=== PATIENT | male | born 1945 | race Caucasian/White ===

== ENCOUNTER 2022-03-15 13:05 | Emergency (ER) | payer MEDICARE ==
[2022-03-15 13:38] VITALS: BP 131/64
[2022-03-15] MEDS ORDERED: TORAdol 30 mg Injection IM ONE (14:20)
[2022-03-15] MEDS ORDERED: TORAdol 30 mg Injection ONE (14:34)
--- NOTE | 2022-03-15 15:19 | XRAY ---
Indication: Index finger laceration. Comparison: None 3 view left hand demonstrates distal 2nd finger bandage material with underlying soft tissue swelling/laceration, ring base 4th finger, osteopenia, mild 1st/2nd MCP degenerative changes, and mild 1st metacarpal multangular scaphoid articulation degenerative changes. No other bony, articular, or soft tissue abnormalities.
[2022-03-15] MEDS ORDERED: XYLOCAINE 1% HCL 20 ML MDV ONE (15:48)
[2022-03-15] MEDS ORDERED: KEFZOL 1 GM IM ONE (17:07)
[2022-03-15] MEDS ORDERED: Hydromorphone 1 mg/ml Injection IM ONE (17:08)
[2022-03-15] MEDS ORDERED: KEFZOL 1 GM ONE (17:11)
[2022-03-15] MEDS ORDERED: Hydromorphone 1 mg/ml Injection ONE (17:12)
[2022-03-15] MEDS ORDERED: Sterile H2O 10 ml IJ ONE (17:13)
--- NOTE | 2022-03-15 17:13 | ERPHSYRPT ---
- History of Present Illness Source: patient Exam Limitations: no limitations Patient Subjective Stated Complaint: C/O cutting his finger trimming hedges approx 30 minutes prior to arrival to ED. Triage Nursing Assessment: Patient has a cut to this left hand index fingertip. It is currently bleeding a small amount. Area is wrapped in clean gauze. Physician History: 76 yo wm w hedge clippers vs L 2nd digit at home before ER arrival. Pt is UTD on his tetanus and pain is moderate. He denies any other injuries at this time. He is L handed. Occurred: just prior to arrival Method of Injury: incised (Hedge clippers vs L 2nd digit) Quality: constant Severity of Pain-Max: moderate Severity of Pain-Current: moderate Extremities Pain Location: 2nd finger: left Modifying Factors: Improves With: movement Associated Symptoms: none Allergies/Adverse Reactions: No Known Drug Allergies Allergy (Verified 03/15/22 13:28) Home Medications: Lorazepam 0.5 mg [Ativan 0.5 MG] 0.5 mg PO BID 05/31/14 [History] Tamsulosin HCl 0.4 mg [Flomax 0.4 MG] 0.4 mg PO DAILY 05/31/14 [History] lisinopriL [Zestril] 2.5 mg PO DAILY 05/31/14 [History] Hx Tetanus, Diphtheria Vaccination/Date Given: Yes Hx Influenza Vaccination/Date Given: Yes Hx Pneumococcal Vaccination/Date Given: Yes Immunizations Up to Date: Yes Travel Risk - International Travel Have you traveled outside of the country in past 3 weeks: No - Coronavirus Screening Are you exhibiting any of the following symptoms?: No Close contact with a COVID-19 positive Pt in past 14-21 Days: No - Vaccine Status Have you recieved a Covid-19 vaccination: Yes Staff Technologist: [id number] - Vaccination Dates Date of 2cond Vaccination (if applicable): 2020 - Review of Systems Constitutional: No Symptoms Eyes: No Symptoms Ears, Nose, & Throat: No Symptoms Respiratory: No Symptoms Cardiac: No Symptoms Abdominal/Gastrointestinal: No Symptoms Genitourinary Symptoms: No Symptoms Skin: No Symptoms Neurological: No Symptoms Psychological: No Symptoms Endocrine: No Symptoms Hematologic/Lymphatic: No Symptoms Immunological/Allergic: No Symptoms - Past Medical History Pertinent Past Medical History: Yes Cardiac History: Hypertension Other Medical History: Skin CA - Past Surgical History Past Surgical History: Yes Other Surgical History: Skin CA removals - Social History Smoking Status: Never smoker Exposure to second hand smoke: No Drug Use: none Patient Lives Alone: No - Nursing Vital Signs Nursing Vital Signs: Initial Vital Signs Temperature 98 F 03/15/22 13:28 Pulse Rate 81 03/15/22 13:28 Respiratory Rate 20 03/15/22 13:28 Blood Pressure 131/64 03/15/22 13:28 O2 Sat by Pulse Oximetry 96 03/15/22 13:28 Pain Scale Pain Intensity 3 WNL - Physical Exam General Appearance: no apparent distress Eyes, Ears, Nose, Throat Exam: normal ENT inspection Neck Exam: normal inspection, non-tender, supple, full range of motion, No Brudzinski, No Kernig's, No meningismus, No carotid bruit Cardiovascular/Respiratory Exam: normal breath sounds, regular rate/rhythm, heart sounds normal Abdominal Exam: non-tender, soft Back Exam: normal inspection, normal range of motion, No CVA tenderness, No vertebral tenderness Shoulder Exam: normal inspection, non-tender, no evidence of injury Elbow/Forearm Exam: normal inspection, non-tender, no evidence of injury Wrist Exam: normal inspection, non-tender, no evidence of injury Hand Exam: laceration (L 2nd digit w burst laceration of distal pad/Good distal capillary return and sensation/No nail injury) Neuro/Tendon Exam: normal sensation, normal motor functions Mental Status Exam: alert, oriented x 3, cooperative Skin Exam: normal color, warm, dry SpO2 Interpretation: normal SpO2: 96 O2 Delivery: Room Air Procedures - Incision and Drainage Site: L 2nd digit distal phalanx - Laceration/Wound Repair Left Distal Finger Time of Procedure: 17:30 Wound Location: Left, hand (Distal 2nd digit) Wound Length (cm): 4 Wound's Depth, Shape: stellate Wound Explored: clean Hibiclens Prep: Yes Anesthesia: 1% Lidocaine (Digital block 1% Lido wo epi L 2nd digit) Volume Anesthetic (ccs): 4 Wound Debrided: minimal Wound Repaired With: sutures Suture Size/Type: 5-0 (5.0 Ethilon x6) Number of Sutures: 6 Sterile Dressing Applied?: Yes - Course Nursing assessment & vital signs reviewed: Yes - Radiology Exams Hand X-ray Interpretation: Discussed w/ radiologist (No Fx) Ordered Tests: Active Orders 24 hr Category Date Time Status HAND (MINIMUM 3 VIEWS) Stat Exams 03/15/22 14:57 Completed Medication Summary Discontinued Medications Generic Name Dose Route Start Last Admin Trade Name Ping PRN Reason Stop Dose Admin Cefazolin Sodium 1 g 03/15/22 17:07 03/15/22 17:17 Cefazolin Sodium 1 Gm Vial IM 03/15/22 17:08 1 g STAT ONE Administration Cefazolin Sodium Confirm 03/15/22 17:11 Cefazolin Sodium 1 Gm Vial Administered 03/15/22 17:12 Dose 1 g .ROUTE .STK-MED ONE Hydromorphone HCl 0.5 mg 03/15/22 17:08 03/15/22 17:16 Hydromorphone 1 Mg/1ml Inj 1 Mg/Ml Syringe IM 03/15/22 17:09 0.5 mg STAT ONE Administration Hydromorphone HCl Confirm 03/15/22 17:12 Hydromorphone 1 Mg/1ml Inj 1 Mg/Ml Syringe Administered 03/15/22 17:13 Dose 1 mg .ROUTE .STK-MED ONE Ketorolac Tromethamine 15 mg 03/15/22 14:20 03/15/22 14:36 Ketorolac Tromethamine 30 Mg/Ml Inj IM 03/15/22 14:21 15 mg STAT ONE Administration Ketorolac Tromethamine Confirm 03/15/22 14:34 Ketorolac Tromethamine 30 Mg/Ml Inj Administered 03/15/22 14:35 Dose 30 mg .ROUTE .STK-MED ONE Lidocaine HCl Confirm 03/15/22 15:48 Lidocaine Hcl 1% 20 Ml Mdv 20 Ml Ml Administered 03/15/22 15:49 Dose 1 ml .ROUTE .STK-MED ONE Sterile Water Confirm 03/15/22 17:13 Water For Injection,Sterile 10 Ml Vial Administered 03/15/22 17:14 Dose 10 ml IJ .STK-MED ONE - Progress Progress: improved Progress Note: 03/15/22 21:31 L distal 2nd digit stellate laceration/Wound explored and stitched to obtain hemstasis/wound explored wo evidence of tendon injury/unable to close wound due to complexity of laceration/6-5.0 Ethilon placed to obtain hemostasis for transfer/Spoke w Dr. Griffin who was unable to see pt until tomorrow at 14:00 in [place] [facility]/Pt accepted by Dr. Ocasio at [facility]/1gm IM Ancef/0.5mg IM Dilaudid/wound dressed per nursing/Pt transferred to [facility] by private vehicle/Pt advised of NPO status/Good distal capillary return and sensation before digital block 03/15/22 21:57 Counseled pt/family regarding: diagnosis, need for follow-up, rad results - Departure Departure Disposition: Transfer Clinical Impression: Finger laceration Condition: Stable Critical Care Time: No Referrals: DOCTOR,NO FAMILY [Primary Care Provider] - Follow up/PCP as directed Additional Instructions: [facility] ER JACQUELINE Nothing to eat/drink in route
[2022-03-15 17:35] VITALS: PULSE 76
[2022-03-15 21:32] VITALS: O2SAT 96
== END 2022-03-15 17:33 | disposition short-term general hospital (02) ==
LOC: ED 13:05
DX: S61.211A Laceration without foreign body of left index finger without damage to nail, initial encounter (principal); W31.89XA Contact with other specified machinery, initial encounter; Y93.H2 Activity, gardening and landscaping; I10 Essential (primary) hypertension; Z79.899 Other long term (current) drug therapy
CPT/HCPCS: 12002; 73130; 96372; 99284; J0690; J1170; J1885